=== PATIENT | male | born 1965 | race Hispanic/Latino ===

== ENCOUNTER 2024-02-11 10:43 | Day surgery (SDC) | payer OTHER ==
[~2024-02-11] VITALS: Ht 165 cm; Wt 74.0 kg
[2024-02-11] MEDS ORDERED: LACTATED RINGER'S 1,000 ML IV ONE (11:01)
[2024-02-11] MEDS ORDERED: FAMOTIDINE 10MG/ML 2ML SDV IV ONE (11:01)
[2024-02-11 13:55] VITALS: BP 120/84
[2024-02-11] MEDS ORDERED: GLYCOPYRROLATE 0.2 MG/ML IV ONE (16:26)
[2024-02-11] MEDS ORDERED: LIDOCAINE HCL 2% 2ML SDV IV ONE (16:26)
[2024-02-11] MEDS ORDERED: PROPOFOL 200 MG/20 ML VIAL IV ONE (16:26)
== END 2024-02-11 13:45 | disposition home or self-care (01) ==
LOC: ENDO 10:43 → ORM 15:30 → ENDO 15:30
PROVIDERS: ATTEND Internal Medicine Gastroenterology
DX: Z12.11 Encounter for screening for malignant neoplasm of colon (principal); K64.8 Other hemorrhoids